=== PATIENT | female | born 1955 | race Caucasian/White ===

== ENCOUNTER 2018-02-21 22:33 | Inpatient (IN) | payer OTHER ==
[~2018-02-21] VITALS: Ht 175.3 cm; Wt 80.4 kg
[2018-02-22] VITALS (9 sets, daily range): BP systolic 124–184; BP diastolic 70–94; PULSE 76–90; RESP 15–27; TEMP 97.9–99.1; O2SAT 95–100
[2018-02-22] MEDS ORDERED: MAGNESIUM SULFATE INJ 4 GM in SODIUM CHLORIDE 0.9% INJ 92 ML IV PRN (03:15)
[2018-02-22] MEDS ORDERED: MAGNESIUM OXIDE 400 MG TAB PO PRN (03:15)
[2018-02-22] MEDS ORDERED: BISACODYL 10 MG SUPP RECTAL PRN (03:15)
[2018-02-22] MEDS ORDERED: MAGNESIUM SULFATE INJ 2 GM in SODIUM CHLORIDE 0.9% INJ 96 ML IV PRN (03:15)
[2018-02-22] MEDS ORDERED: Vancomycin Consult Pharmacy 1 EA OTHER SCH (03:15)
[2018-02-22] MEDS ORDERED: POTASSIUM PHOSPHATE INJ 30 MMOL in SODIUM CHLOR 0.9% 250 ML INJ 250 ML IV PRN (03:15)
[2018-02-22] MEDS ORDERED: POTASSIUM PHOSPHATE MONOBASIC 500 MG TAB PO/TUBE PRN (03:15)
[2018-02-22] MEDS ORDERED: SODIUM PHOSPHATE INJ 30 MMOL in SODIUM CHLOR 0.9% 250 ML INJ 240 ML IV PRN (03:15)
[2018-02-22] MEDS ORDERED: NURSING INFORMATION XX SCH (03:15)
[2018-02-22] MEDS ORDERED: LACTULOSE SYRUP 20 GM/30 ML CUP PO PRN (03:15)
[2018-02-22] MEDS ORDERED: MAGNESIUM HYDROXIDE SUSP 30 ML CUP PO PRN (03:15)
[2018-02-22] MEDS ORDERED: POTASSIUM PHOSPHATE MONOBASIC 500 MG TAB PO PRN (03:15)
[2018-02-22] MEDS ORDERED: POTASSIUM CHLOR 20 MEQ PREMIX 100 ML IV PRN ×2 (03:15)
[2018-02-22] MEDS ORDERED: DEXTROSE 50% IN WATER 50 ML VIAL(D50) IV PUSH PRN (03:15)
[2018-02-22] MEDS ORDERED: RESP: ALBUTEROL 2.5 MG/IPRATROPIUM 0.5 MG NEB (PRN) INH (03:15)
[2018-02-22] MEDS ORDERED: SENNOSIDES 8.6 MG TAB PO PRN (03:15)
[2018-02-22] MEDS ORDERED: ACETAMINOPHEN 325 MG TAB PO PRN (03:15)
[2018-02-22] MEDS ORDERED: POTASSIUM CHLOR 40 MEQ PREMIX 100 ML IV PRN ×2 (03:15)
[2018-02-22] MEDS ORDERED: CHLORHEXIDINE GLUCONATE 2 % 1 PACK (2 CLOTHS) TOP PRN (03:15)
[2018-02-22] MEDS ORDERED: POTASSIUM CHLORIDE 25 MEQ EFFERVESCENT TAB PO PRN (03:15)
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
[2018-02-22] MEDS: HYDROmorphone HCL PF 0.5 MG/0.5 ML SYRINGE IV PUSH PRN (03:40)
[2018-02-22] MEDS: BACITRACIN TOP OINT 15 GM TUBE TOPICAL SCH ×3 (03:45→21:30)
[2018-02-22] MEDS: CHLORHEXIDINE GLUCONATE 2 % 1 PACK (2 CLOTHS) TOP SCH (04:05)
[2018-02-22 04:27] LABS: AUTOMATED NEUTROPHIL # 3.4 TH/MM3 (1.8-7.7); BASOPHIL % 0.7 % (0.0-2.0); EOSINOPHIL # 0.3 TH/MM3 (0-0.4); EOSINOPHIL % 4.5 % (0.0-4.0); HEMATOCRIT 33.3 % (35.0-46.0); HEMOGLOBIN 11.3 GM/DL (11.6-15.3); LYMPH % 26.6 % (9.0-44.0); LYMPHOCYTE # 1.5 TH/MM3 (1.0-4.8); MEAN CORPUSCULAR HEMOGLOBIN 29.6 PG (27.0-34.0); MEAN CORPUSCULAR HGB CONC 34.1 % (32.0-36.0); MONO % 8.3 % (0.0-8.0); MONOCYTE # 0.5 TH/MM3 (0-0.9); NEUT % 59.9 % (16.0-70.0); PLATELET COUNT 406 TH/MM3 (150-450); RED BLOOD COUNT 3.82 MIL/MM3 (4.00-5.30); RED CELL DISTRIBUTION WIDTH 13.2 % (11.6-17.2); WHITE BLOOD COUNT 5.7 TH/MM3 (4.0-11.0)
[2018-02-22 04:51] LABS: BICARBONATE 24.6 MEQ/L (21.0-32.0); CALCIUM 8.9 MG/DL (8.5-10.1); CREATININE 1.03 MG/DL (0.50-1.00)
[2018-02-22] MEDS: AZTREONAM INJ 1,000 MG in SODIUM CHLORIDE 0.9% INJ 100 ML IV SCH ×3 (05:51→22:16)
[2018-02-22] MEDS: HEPARIN SODIUM - SQ 10,000 UNITS/ML VIAL SQ SCH ×3 (05:51→21:30)
[2018-02-22] MEDS: DEXTROSE 5%-LACTATED RING INJ 1,000 ML IV SCH ×3 (05:51→21:08)
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
[2018-02-22] MEDS ORDERED: INSULIN NovoLIN REGULAR SUPPLEMENTAL SCALE SQ SCH (08:00)
[2018-02-22] MEDS: FAMOTIDINE 20 MG TAB PO SCH ×2 (08:38→21:30)
[2018-02-22] MEDS: DOCUSATE SODIUM 50 MG/SENNA 8.6 MG TAB PO SCH ×2 (08:38→21:30)
[2018-02-22] MEDS ORDERED: RIFA300C2 PO (08:44)
[2018-02-22] MEDS ORDERED: SULF1TAB23 PO (08:44)
--- NOTE | 2018-02-22 09:35 | RADRPT ---
EXAM DATE: 02/22/2018 9:28 AM EDT AGE/SEX: 62 years / Female INDICATIONS: Pain for 6 days, no known trauma. CLINICAL DATA: This is the patient's initial encounter. Patient reports that signs and symptoms have been present for 4 - 6 days and indicates a pain score of 0/10. MEDICAL/SURGICAL HISTORY: None. None. [place] [facility] [place]/22/2018. . FINDINGS: 3 views of the right ankle demonstrate fracture dislocation at the Lisfranc joint. This finding is on ly partially imaged on this examination of the ankle. Talus and calcaneus appear intact. Ankle mortis e is intact. Distal tibia and fibula demonstrate no fracture. No soft tissue abnormality or radiopaqu e foreign body is seen. There is overlying cast material in place. CONCLUSION: There is a partially visualized fracture/dislocation in the region of the Lisfranc joint. Suggest ded icated foot x-rays and/or CT for further evaluation. Electronically signed by: Devonte Rivera MD 02/22/2018 9:33 AM EDT
--- NOTE | 2018-02-22 09:39 | PD.CONS ---
History of Present Illness Service Podiatry Consult Requested By Reason for Consult Right foot pain Primary Care Physician No Primary Care Physician Diagnoses: History of Present Illness This is a 62-year-old female with an unremarkable past medical history, but who has not seen a physician in 20 years, presents with right lower extremity pain and swelling. This started on Friday 02/16 when she noticed her right foot was swollen and painful. Past Family Social History Allergies: Uncoded Allergies: PCN (Allergy, Intermediate, 02/22/18) Past Medical History No prior past medical history, however has not been evaluated by physician in 20 years Past Surgical History delivery Active Ordered Medications Current Medications Medications (Trade) Dose Ordered Sig/Los Route Start Time Stop Time Status Last Admin (Baciguent Oint) 1 applic Q12HR TOPICAL 02/22/18 03:15 02/22/18 08:39 Potassium Chloride 100 ml @ 50 mls/hr Q2H PRN IV 02/22/18 03:15 Potassium Chloride 100 ml @ 50 mls/hr Q2H PRN IV 02/22/18 03:15 (K-Lyte Cl Eff) 50 meq UNSCH PRN PO 02/22/18 03:15 Potassium Chloride 100 ml @ 25 mls/hr UNSCH PRN IV 02/22/18 03:15 Potassium Chloride 100 ml @ 50 mls/hr Q2H PRN IV 02/22/18 03:15 Magnesium Sulfate 4 gm/Sodium Chloride 100 ml @ 50 mls/hr UNSCH PRN IV 02/22/18 03:15 (Mag-Ox) 800 mg UNSCH PRN PO 02/22/18 03:15 Magnesium Sulfate 2 gm/Sodium Chloride 100 ml @ 50 mls/hr UNSCH PRN IV 02/22/18 03:15 (K-Phos) 2,000 mg Q4H PRN PO 02/22/18 03:15 Sodium Phosphate 30 mmol/Sodium Chloride 250 ml @ 42 mls/hr UNSCH PRN IV 02/22/18 03:15 (K-Phos) 2,000 mg UNSCH PRN PO/TUBE 02/22/18 03:15 Potassium Phosphate 30 mmol/ Sodium Chloride 260 ml @ 42 mls/hr UNSCH PRN IV 02/22/18 03:15 (D50w (Vial) Inj) 25 ml UNSCH PRN IV PUSH 02/22/18 03:15 (Tylenol) 650 mg Q6H PRN PO 02/22/18 03:15 (Dilaudid Pf Inj) 0.5 mg Q4H PRN IV PUSH 02/22/18 03:15 02/22/18 03:40 (Pepcid) 20 mg Q12HR PO 02/22/18 09:00 02/22/18 08:38 (Duoneb Neb) 1 ampule Q2HR NEB PRN INH 02/22/18 03:15 (Heparin Inj) 5,000 units Q8H SQ 02/22/18 05:00 02/22/18 05:51 ([facility] [place]) 1 Q361D XX 02/22/18 03:15 02/22/18 03:15 (Chlorhexidine 2% Cloth) 3 pack Taper DAILY@04 TOP 02/22/18 04:00 02/18/19 03:59 (Chlorhexidine 2% Cloth) 3 pack UNSCH PRN TOP 02/22/18 03:15 (Cheyenne-Colace) 1 tab BID PO 02/22/18 09:00 02/22/18 08:38 (Milk Of Magnesia Liq) 30 ml Q12H PRN PO 02/22/18 03:15 (Senokot) 17.2 mg Q12H PRN PO 02/22/18 03:15 (Dulcolax Supp) 10 mg DAILY PRN RECTAL 02/22/18 03:15 (Lactulose Liq) 30 ml DAILY PRN PO 02/22/18 03:15 Pharmacy Profile Note 0 ml @ 0 mls/hr UNSCH OTHER 02/22/18 03:15 Aztreonam 1000 mg/ Sodium Chloride 100 ml @ 200 mls/hr Q8H IV 02/22/18 06:00 02/22/18 13:51 ([facility] [place]) PLEASE UPDATE PREMA... Q3H .XX 02/22/18 06:00 02/22/18 09:00 Dextrose/Lactated Ringer's 1,000 ml @ 84 mls/hr [id number] IV 02/22/18 05:30 02/22/18 05:51 (Pneumovax-23 Inj) 25 mcg ONCE ONCE IM 02/23/18 10:00 02/23/18 10:01 Vancomycin HCl 1500 mg/Sodium Chloride 515 ml @ 257.5 mls/ hr Q24H IV 02/23/18 12:00 ([facility] [place] [facility] Ordered Lab Info) SPECIFIC LAB TO BE ... ONCE ONCE .XX 02/25/18 11:45 02/25/18 11:46 (NovoLIN R SUPPLEMENTAL SCALE) 1 Q6HR SQ 02/22/18 18:00 Family History Diabetes, dad Social History Former smoker but quit many years ago. Does endorse drinking socially "Shadia every now and then ", denies other drugs. Physical Exam Vital Signs Vital Signs Date Time Temp Pulse Resp B/P (MAP) Pulse Ox O2 Delivery O2 Flow Rate FiO2 02/22/18 08:00 90 02/22/18 07:00 Room Air 02/22/18 07:00 90 02/22/18 06:00 78 02/22/18 04:00 76 02/22/18 04:00 99.1 76 27 141/70 (93) 100 02/22/18 02:45 99.0 88 19 184/94 (124) 100 02/22/18 02:45 88 Physical Exam Right foot with obvious deformity to midfoot with abduction of forefoot. Dorsal blistering noted to forefoot with mild serous drainage. Pain to midfoot area. Palpable pedal pulses. Capillary refill intact to digits. Laboratory Laboratory Tests Test 02/22/18 04:03 White Blood Count 5.7 Red Blood Count 3.82 Hemoglobin 11.3 Hematocrit 33.3 Mean Corpuscular Volume 87.0 Mean Corpuscular Hemoglobin 29.6 Mean Corpuscular Hemoglobin Concent 34.1 Red Cell Distribution Width 13.2 Platelet Count 406 Mean Platelet Volume 9.0 Neutrophils (%) (Auto) 59.9 Lymphocytes (%) (Auto) 26.6 Monocytes (%) (Auto) 8.3 Eosinophils (%) (Auto) 4.5 Basophils (%) (Auto) 0.7 Neutrophils # (Auto) 3.4 Lymphocytes # (Auto) 1.5 Monocytes # (Auto) 0.5 Eosinophils # (Auto) 0.3 Basophils # (Auto) 0.0 CBC Comment DIFF FINAL Differential Comment Blood Urea Nitrogen 13 Creatinine 1.03 Random Glucose 212 Calcium Level 8.9 Sodium Level 139 Potassium Level 4.0 Chloride Level 105 Carbon Dioxide Level 24.6 Anion Gap 9 Estimat Glomerular Filtration Rate 55 Prealbumin 13 B-Hydroxybutyrate 0.26 Date/Time Source Procedure Growth Status 02/22/18 04:14 Blood Peripheral Aerobic Blood Culture Pending Received 02/22/18 04:14 Blood Peripheral Anaerobic Blood Culture Pending Received Result Diagram: 02/22/18 0403 02/22/18 0403 Imaging Last 72 hours Impressions Lower Extremity CT 02/22/18 1434 Signed Impressions: CONCLUSION: There is homolateral dislocation at all of the Lisfranc joints with lateral and posterior displacement of the proximal metatarsals. Multiple small ossific den sities adjacent to the Lisfranc joint may represent fracture fragments. There i s an impaction fracture on the proximal first metatarsal secondary to impaction from the middle cuneiform. Lower Extremity CT 02/22/18 0646 Signed Impressions: CONCLUSION: 1. There is fracture dislocation at the Lisfranc joint. Please refer to foot C T for further description as this finding is only partially imaged on this stud y. 2. There is subcutaneous edema along the medial and lateral aspect of the ankl e. No ankle fracture is identified. Foot X-Ray 02/22/18 0000 Signed Impressions: CONCLUSION: There is fracture dislocation at all of the Lisfranc joints with lateral and po sterior displacement of the proximal metatarsals. Ankle X-Ray 02/22/18 0000 Signed Impressions: CONCLUSION: There is a partially visualized fracture/dislocation in the region of the Lisfr anc joint. Suggest dedicated foot x-rays and/or CT for further evaluation. Assessment and Plan Assessment and Plan Right foot lisfranc fracture/dislocation To OR this afternoon for ORIF vs exfix vs percutaneous pinning right foot fractures XR and CT pending NPO now Delmy Tam DPM February 22, 2018 09:39
--- NOTE | 2018-02-22 10:26 | RADRPT ---
EXAM DATE: 02/22/2018 9:14 AM EDT AGE/SEX: 62 years / Female INDICATIONS: Right ankle pain. Evaluate for fracture. CLINICAL DATA: This is the patient's initial encounter. Patient reports that signs and symptoms have been present for 1 day and indicates a pain score of 4/10. MEDICAL/SURGICAL HISTORY: None. None. RADIATION DOSE: 7.29 CTDI (mGy) COMPARISON: No prior [place] exams available for comparison. TECHNIQUE: Multiple contiguous axial images were acquired using a multirow detector CT scanner witho ut contrast. Multiplanar reconstruction was performed in the sagittal and coronal planes. Using aut omated exposure control and adjustment of the mA and/or kV according to patient size, radiation dose was kept as low as reasonably achievable to obtain optimal diagnostic quality images. FINDINGS: Bones: There is a fracture dislocation at the Lisfranc joint which is only partially visualized on t his examination. It appears to involve at least the second and third proximal metatarsals. The distal tibia, distal fibula, talus, calcaneus, cuboid, and navicular bone are intact without fracture. Joints: Ankle mortise is intact. No degenerative changes present. Subtalar joint is within normal li mits. There is dislocation at the Lisfranc joint. Soft Tissues: There is subcutaneous edema along the medial and lateral aspect of the ankle joint and within the midfoot. No dislocated tendons are identified. Distal Achilles tendon is normal in thickn ess. Other: No foreign bodies seen. CONCLUSION: 1. There is fracture dislocation at the Lisfranc joint. Please refer to foot CT for further descript ion as this finding is only partially imaged on this study. 2. There is subcutaneous edema along the medial and lateral aspect of the ankle. No ankle fracture i s identified. Electronically signed by: Devonte Rivera MD 02/22/2018 10:24 AM EDT
--- NOTE | 2018-02-22 10:43 | RADRPT ---
EXAM DATE: 02/22/2018 10:36 AM EDT AGE/SEX: 62 years / Female INDICATIONS: Evaluate right foot fracture. Patient states they cleaned a wound this morning. Patient had pain, not today. CLINICAL DATA: This is the patient's subsequent encounter. Patient reports that signs and symptoms h ave been present for 1 week and indicates a pain score of 0/10. MEDICAL/SURGICAL HISTORY: None. None. COMPARISON: No prior [place] exams available for comparison. FINDINGS: 3 views of the right foot obtained with overlying casting material in place demonstrate a fracture di slocation at the Lisfranc joint that appears to involve all tarsometatarsal joints. The proximal meta tarsals are laterally and posteriorly displaced. The medial cuneiform appears slightly medially displ aced. No definite fracture is seen in the hindfoot. There is soft tissue swelling on the dorsal aspec t of the foot. No radiopaque foreign body is identified. CONCLUSION: There is fracture dislocation at all of the Lisfranc joints with lateral and posterior displacement o f the proximal metatarsals. Electronically signed by: Devonte Rivera MD 02/22/2018 10:42 AM EDT
[2018-02-22] MEDS ORDERED: DEXAMETHASONE SOD PHOS 4 MG/ML VIAL IV ONE (12:00)
[2018-02-22] MEDS ORDERED: PHENYLEPHRINE HCL 10 MG/ML VIAL IV ONE (12:00)
[2018-02-22] MEDS ORDERED: ONDANSETRON HCL 4 MG/2 ML VIAL IV PUSH ONE (12:00)
[2018-02-22] MEDS ORDERED: LIDOCAINE HCL 1% PF 5 ML SYRINGE OTHER ONE (12:00)
[2018-02-22] MEDS ORDERED: LACTATED RINGER'S 1000 ML INJ 1,000 ML IV ONE (12:00)
[2018-02-22] MEDS ORDERED: PHENYLEPH/NS 1000 MCG/10 ML SYR IV ONE (12:00)
[2018-02-22] MEDS ORDERED: PROPOFOL 200 MG/20 ML AMP IV ONE (12:00)
[2018-02-22] MEDS ORDERED: ePHEDrine/NS 25 MG/5 ML SYRINGE IV ONE (12:00)
[2018-02-22] MEDS ORDERED: VANCOMYCIN 1,500 MG/NS 500 ML IV ONE ×2 (12:00)
[2018-02-22] MEDS ORDERED: GENTAMICIN SULFATE 80 MG/2 ML VIAL ONE (13:50)
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
--- NOTE | 2018-02-22 15:52 | RADRPT ---
EXAM DATE: 02/22/2018 3:26 PM EDT AGE/SEX: 62 years / Female INDICATIONS: Pain for 6 days, no known trauma. CLINICAL DATA: This is the patient's initial encounter. Patient reports that signs and symptoms have been present for 4 - 6 days and indicates a pain score of 0/10. MEDICAL/SURGICAL HISTORY: Diabetes. None. RADIATION DOSE: 27.69 CTDI (mGy) COMPARISON: No prior [facility] exams available for comparison. TECHNIQUE: Multiple contiguous axial images were acquired using a multirow detector CT scanner witho ut contrast. Multiplanar reconstruction was performed in the sagittal and coronal planes. Using auto mated exposure control and adjustment of the mA and/or kV according to patient size, radiation dose w as kept as low as reasonably achievable to obtain optimal diagnostic quality images. FINDINGS: Bones: There are small ossific densities adjacent to the dislocated metatarsals at the Lisfranc join ts. The middle cuneiform demonstrates impaction on the proximal first metatarsal. Bones of the hindfo ot are intact. Digits also appear intact. Joints: There is dislocation at all of the Lisfranc joints involving the first through fifth digits. These are dislocated laterally and posteriorly. Soft Tissues: There is diffuse subcutaneous edema throughout the foot. Other: No foreign bodies seen. CONCLUSION: There is homolateral dislocation at all of the Lisfranc joints with lateral and posterior displacemen t of the proximal metatarsals. Multiple small ossific densities adjacent to the Lisfranc joint may re present fracture fragments. There is an impaction fracture on the proximal first metatarsal secondary to impaction from the middle cuneiform. Electronically signed by: Devonte Rivera MD 02/22/2018 3:50 PM EDT
[2018-02-22] MEDS ORDERED: BUPIVACAINE HCL PF 0.75% 10 ML VIAL ONE (17:46)
[2018-02-22] MEDS ORDERED: LIDOCAINE HCL 2% 50 ML VIAL ONE (17:49)
[2018-02-22] MEDS: INSULIN NovoLIN REGULAR SUPPLEMENTAL SCALE SQ SCH (18:00)
[2018-02-22] MEDS ORDERED: KETAMINE HCL 50 MG/5 ML SYRINGE ONE (18:38)
[2018-02-22] MEDS ORDERED: MIDAZOLAM HCL 2 MG/2 ML VIAL ONE (18:59)
[2018-02-22 19:55] LABS: HEMOGLOBIN A1C 11.1 % (4.3-6.0)
--- NOTE | 2018-02-22 20:49 | RADRPT ---
EXAM DATE: 02/22/2018 8:32 PM EDT AGE/SEX: 62 years / Female INDICATIONS: External fixator of the right foot. CLINICAL DATA: This is the patient's subsequent encounter. Patient reports that signs and symptoms h ave been present for 2 days and indicates a pain score of Nonresponsive. MEDICAL/SURGICAL HISTORY: Diabetes mellitus type II. None. COMPARISON: No prior [facility] exams available for comparison. FINDINGS: Patient is status post internal fixation of the foot with multiple pins.. There appears to be good po sition alignment of the bony structures. CONCLUSION: Good position and alignment on this postoperative study. Electronically signed by: Angel Durham MD 02/22/2018 8:48 PM EDT
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
[2018-02-22] MEDS ORDERED: DO NOT ADM ANY ANTICOAGULANT DRUGS PRN (21:00)
--- NOTE | 2018-02-22 21:24 | RADRPT ---
EXAM DATE: 02/22/2018 9:20 PM EDT AGE/SEX: 62 years / Female INDICATIONS: Post-op external fixator placement of the right foot. CLINICAL DATA: This is the patient's subsequent encounter. Patient reports that signs and symptoms h ave been present for 2 days and indicates a pain score of 0/10. MEDICAL/SURGICAL HISTORY: Diabetes mellitus type II. . External fixator placement. COMPARISON: [facility] [place], FOOT RIGHT COMPLETE ([id number]), 02/22/2018. . FINDINGS: Patient is status post internal fixation of the right foot with multiple pins. There appears to be go od alignment and position of the bony structures and hardware on this postoperative study. CONCLUSION: Good alignment position on this postoperative study. Electronically signed by: Angel Durham MD 02/22/2018 9:23 PM EDT
[2018-02-22 23:06] LABS: BACTERIA, URINE OCC /hpf; BILIRUBIN, URINE NEG (NEG); BLOOD, URINE NEG (NEG); GLUCOSE,URINE 150 mg/dL (NEG); KETONE, URINE 10 mg/dL (NEG); MUCUS URINE FEW /lpf (OCC); NITRITE,URINE NEG (NEG); RENAL EPITHELIAL CELLS 2 /hpf; SQUAMOUS EPITHELIAL CELL URINE 14 /hpf (0-5); TRANSITIONAL EPI CELLS, URINE <1 /hpf; URINE COLOR LIGHT-YELLOW (YELLW/STRAW); URINE LEUKOCYTE ESTERASE LARGE (NEG)
[2018-02-23] VITALS: BP 115/56; PULSE 82; RESP 16; TEMP 98.1; O2SAT 98
[2018-02-23] MEDS: INSULIN NovoLIN REGULAR SUPPLEMENTAL SCALE SQ SCH ×4 (00:35→17:32)
[2018-02-23 04:00] VITALS: BP 131/71; PULSE 78; RESP 18; TEMP 98.2; O2SAT 100
[2018-02-23] MEDS: CHLORHEXIDINE GLUCONATE 2 % 1 PACK (2 CLOTHS) TOP SCH (04:16)
[2018-02-23] MEDS: HEPARIN SODIUM - SQ 10,000 UNITS/ML VIAL SQ SCH ×3 (04:51→20:46)
--- NOTE | 2018-02-23 05:12 | RADRPT ---
EXAM DATE: 02/23/2018 4:57 AM EDT AGE/SEX: 62 years / Female INDICATIONS: Post operative; Right foot. CLINICAL DATA: This is the patient's initial encounter. Patient reports that signs and symptoms have been present for 3 days and indicates a pain score of 4/10. MEDICAL/SURGICAL HISTORY: None. . Right foot RADIATION DOSE: 4.14 CTDI (mGy) COMPARISON: [facility], CT ANKLE RIGHT W/O CONTRAST, 02/22/2018. . TECHNIQUE: Multiple contiguous axial images were acquired using a multirow detector CT scanner witho ut contrast. Multiplanar reconstruction was performed in the sagittal and coronal planes. Using auto mated exposure control and adjustment of the mA and/or kV according to patient size, radiation dose w as kept as low as reasonably achievable to obtain optimal diagnostic quality images. FINDINGS: Surgical pins traverse the tarsometatarsal junctions and previously seen fractures and Lisfranc's dis location have been reduced with multiple bony fragments at the second and third tarsometatarsal joint s. Postsurgical soft tissue gas is identified and alignment appears anatomical. CONCLUSION: 1. Postsurgical changes and gross anatomical alignment. Electronically signed by: Raphael Escalante MD 02/23/2018 5:11 AM EDT
[2018-02-23 05:26] LABS: HEMATOCRIT 29.8 % (35.0-46.0); HEMOGLOBIN 10.2 GM/DL (11.6-15.3); MEAN CELL VOLUME 86.7 FL (80.0-100.0); MEAN CORPUSCULAR HEMOGLOBIN 29.6 PG (27.0-34.0); MEAN CORPUSCULAR HGB CONC 34.1 % (32.0-36.0); MEAN PLATELET VOLUME 8.1 FL (7.0-11.0); PLATELET COUNT 296 TH/MM3 (150-450); RED BLOOD COUNT 3.44 MIL/MM3 (4.00-5.30); WHITE BLOOD COUNT 4.8 TH/MM3 (4.0-11.0)
[2018-02-23] MEDS: HYDROmorphone HCL PF 0.5 MG/0.5 ML SYRINGE IV PUSH PRN ×3 (05:28→20:46)
[2018-02-23] MEDS: AZTREONAM INJ 1,000 MG in SODIUM CHLORIDE 0.9% INJ 100 ML IV SCH ×3 (05:28→22:00)
[2018-02-23 05:50] LABS: BICARBONATE 27.9 MEQ/L (21.0-32.0); CALCIUM 8.5 MG/DL (8.5-10.1); CREATININE 0.77 MG/DL (0.50-1.00)
[2018-02-23 08:00] VITALS: BP 128/74; PULSE 84; RESP 23; TEMP 98.2; O2SAT 98
[2018-02-23] MEDS: FAMOTIDINE 20 MG TAB PO SCH ×2 (08:18→20:47)
[2018-02-23] MEDS: DOCUSATE SODIUM 50 MG/SENNA 8.6 MG TAB PO SCH ×2 (08:18→20:47)
[2018-02-23] MEDS: BACITRACIN TOP OINT 15 GM TUBE TOPICAL SCH ×2 (08:21→20:47)
[2018-02-23] MEDS: DEXTROSE 5%-LACTATED RING INJ 1,000 ML IV SCH (09:50)
[2018-02-23] MEDS ORDERED: PNEUMOCOCCAL POLYVALENT INJ 25 MCG/0.5 ML SYR IM ONE (10:00)
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
[2018-02-23 12:00] VITALS: BP 98/64; PULSE 92; RESP 29; TEMP 98; O2SAT 95
[2018-02-23] MEDS ORDERED: VANCOMYCIN 1,500 MG/NS 500 ML IV SCH ×2 (12:00)
--- NOTE | 2018-02-23 13:47 | PD.POD ---
Subjective Podiatric Problems Right lisfranc fracture/dislocation status post open reduction with pinning of lisfranc fracture/dislocation right foot 02/22/18 Dr Tam Past Med/Surg/Social History Social History Smoking Status: Never Smoker Objective Vital Signs Vital Signs Date Time Temp Pulse Resp B/P (MAP) Pulse Ox O2 Delivery O2 Flow Rate FiO2 02/23/18 08:00 98.2 84 23 128/74 (92) 98 02/23/18 08:00 84 02/23/18 07:00 Nasal Cannula 3.00 02/23/18 07:00 Nasal Cannula 3.00 02/23/18 04:00 98.2 78 18 131/71 (91) 100 02/23/18 04:00 78 02/23/18 00:00 82 02/23/18 00:00 98.1 82 16 115/56 (75) 98 02/22/18 21:15 98.3 87 24 126/63 (84) 95 Nasal Cannula 2 02/22/18 21:00 89 24 141/64 (89) 95 Nasal Cannula 2 02/22/18 20:45 96 22 141/85 (103) 93 Nasal Cannula 3 02/22/18 20:34 97.9 97 18 110/56 (74) 94 Nasal Cannula 3 02/22/18 16:00 88 02/22/18 16:00 98.2 88 16 134/80 (98) 97 02/22/18 16:00 87 02/22/18 14:00 82 Uncoded Allergies: PCN (Allergy, Intermediate, 02/22/18) Objective Remarks Last 72 hours Impressions Lower Extremity CT 02/23/18 0000 Signed Impressions: CONCLUSION: 1. Postsurgical changes and gross anatomical alignment. Lower Extremity CT 02/22/18 1434 Signed Impressions: CONCLUSION: There is homolateral dislocation at all of the Lisfranc joints with lateral and posterior displacement of the proximal metatarsals. Multiple small ossific den sities adjacent to the Lisfranc joint may represent fracture fragments. There i s an impaction fracture on the proximal first metatarsal secondary to impaction from the middle cuneiform. Lower Extremity CT 02/22/18 0646 Signed Impressions: CONCLUSION: 1. There is fracture dislocation at the Lisfranc joint. Please refer to foot C T for further description as this finding is only partially imaged on this stud y. 2. There is subcutaneous edema along the medial and lateral aspect of the ankl e. No ankle fracture is identified. Foot X-Ray 02/22/18 0000 Signed Impressions: CONCLUSION: Good alignment position on this postoperative study. Foot X-Ray 02/22/18 0000 Signed Impressions: CONCLUSION: Good position and alignment on this postoperative study. Foot X-Ray 02/22/18 0000 Signed Impressions: CONCLUSION: There is fracture dislocation at all of the Lisfranc joints with lateral and po sterior displacement of the proximal metatarsals. Ankle X-Ray 02/22/18 0000 Signed Impressions: CONCLUSION: There is a partially visualized fracture/dislocation in the region of the Lisfr anc joint. Suggest dedicated foot x-rays and/or CT for further evaluation. Exam-Podiatry Remarks Right foot splint intact.. Dressing clean, dry, intact. Neurovascularly intact. Compartments soft Assessment & Plan A/P Right lisfranc fracture/dislocation status post open reduction with pinning of lisfranc fracture/dislocation right foot 02/22/18 Dr Tam Checking on insurance, and will either plan to move forward with primary fusion of 1st and 2nd columns during this admission or as outpatient if insurance can be verified. Continue nonweightbearing left Lovenox 40mg subq daily needed upon discharge Pain control Will change bandage and assess foot Delmy Tam DPM February 23, 2018 13:47
--- NOTE | 2018-02-23 14:28 | EKG ---
Date Performed: 02/22/2018 Time Performed: 11:37:20 PTAGE: 62 years EKG: Possible ectopic atrial rhythm. Poor R wave progression - probable normal variant Inferior T wave changes are nonspecific Borderline ECG NO PREVIOUS TRACING DOCTOR: Gomez Palacios Interpretating Date/Time 02/23/2018 14:27:19
[2018-02-23 16:00] VITALS: BP 102/61; PULSE 96; RESP 21; TEMP 98.1; O2SAT 96
[2018-02-23 20:00] VITALS: BP 145/68; PULSE 88; RESP 24; TEMP 98.8; O2SAT 94
[2018-02-24] VITALS (7 sets, daily range): BP systolic 95–149; BP diastolic 60–88; PULSE 78–94; RESP 12–28; TEMP 97.7–99; O2SAT 94–98
[2018-02-24] MEDS: HYDROmorphone HCL PF 0.5 MG/0.5 ML SYRINGE IV PUSH PRN ×2 (03:30→09:58)
[2018-02-24] MEDS: CHLORHEXIDINE GLUCONATE 2 % 1 PACK (2 CLOTHS) TOP SCH (04:00)
[2018-02-24 04:11] LABS: HEMATOCRIT 29.4 % (35.0-46.0); HEMOGLOBIN 10.1 GM/DL (11.6-15.3); MEAN CELL VOLUME 86.6 FL (80.0-100.0); MEAN CORPUSCULAR HEMOGLOBIN 29.6 PG (27.0-34.0); MEAN CORPUSCULAR HGB CONC 34.2 % (32.0-36.0); MEAN PLATELET VOLUME 7.6 FL (7.0-11.0); PLATELET COUNT 286 TH/MM3 (150-450); RED CELL DISTRIBUTION WIDTH 13.2 % (11.6-17.2); WHITE BLOOD COUNT 7.8 TH/MM3 (4.0-11.0)
[2018-02-24 04:36] LABS: BICARBONATE 25.8 MEQ/L (21.0-32.0); CALCIUM 8.4 MG/DL (8.5-10.1); CREATININE 0.76 MG/DL (0.50-1.00)
[2018-02-24] MEDS: AZTREONAM INJ 1,000 MG in SODIUM CHLORIDE 0.9% INJ 100 ML IV SCH ×3 (05:29→22:41)
[2018-02-24] MEDS: HEPARIN SODIUM - SQ 10,000 UNITS/ML VIAL SQ SCH ×3 (05:29→20:13)
[2018-02-24] MEDS: INSULIN NovoLIN REGULAR SUPPLEMENTAL SCALE SQ SCH ×4 (06:00→17:04)
[2018-02-24] MEDS: DOCUSATE SODIUM 50 MG/SENNA 8.6 MG TAB PO SCH ×2 (08:18→20:13)
[2018-02-24] MEDS: BACITRACIN TOP OINT 15 GM TUBE TOPICAL SCH ×2 (08:18→20:15)
[2018-02-24] MEDS: FAMOTIDINE 20 MG TAB PO SCH ×2 (08:18→20:13)
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
[2018-02-24] MEDS ORDERED: POTASSIUM CHLORIDE 10 MEQ CONTROLLED RELEASE TAB PO ONE (08:45)
[2018-02-24] MEDS ORDERED: ACETAMINOPHEN/HYDROcodone 325 MG/5 MG TAB PO PRN (11:30)
[2018-02-24] MEDS ORDERED: PHARMACY ORDERED LAB ONE ×2 (11:45→18:00)
[2018-02-24] MEDS: VANCOMYCIN 1,000 MG/NS 250 ML IV SCH ×2 (16:33)
--- NOTE | 2018-02-24 19:11 | PD.POD ---
Subjective Podiatric Problems Right lisfranc fracture/dislocation status post open reduction with pinning of lisfranc fracture/dislocation right foot 02/22/18 Dr Tam Past Med/Surg/Social History Social History Smoking Status: Never Smoker Objective Vital Signs Vital Signs Date Time Temp Pulse Resp B/P (MAP) Pulse Ox O2 Delivery O2 Flow Rate FiO2 02/24/18 17:36 98.4 90 18 138/60 (86) 97 02/24/18 16:00 98.2 92 28 149/78 (101) 98 02/24/18 16:00 92 02/24/18 12:00 98.1 78 20 95/63 (74) 97 02/24/18 12:00 78 02/24/18 09:27 21 02/24/18 08:00 97.7 86 18 137/67 (90) 96 02/24/18 08:00 86 02/24/18 07:00 96 Room Air 02/24/18 04:00 99.0 88 23 129/88 (102) 94 02/24/18 04:00 84 02/24/18 00:00 80 02/24/18 00:00 98.4 80 12 132/67 (88) 94 02/23/18 20:00 88 02/23/18 20:00 Room Air 98 02/23/18 20:00 98.8 88 24 145/68 (93) 94 Uncoded Allergies: PCN (Allergy, Intermediate, 02/22/18) Objective Remarks Last 72 hours Impressions Lower Extremity CT 02/23/18 0000 Signed Impressions: CONCLUSION: 1. Postsurgical changes and gross anatomical alignment. Lower Extremity CT 02/22/18 1434 Signed Impressions: CONCLUSION: There is homolateral dislocation at all of the Lisfranc joints with lateral and posterior displacement of the proximal metatarsals. Multiple small ossific den sities adjacent to the Lisfranc joint may represent fracture fragments. There i s an impaction fracture on the proximal first metatarsal secondary to impaction from the middle cuneiform. Lower Extremity CT 02/22/18 0646 Signed Impressions: CONCLUSION: 1. There is fracture dislocation at the Lisfranc joint. Please refer to foot C T for further description as this finding is only partially imaged on this stud y. 2. There is subcutaneous edema along the medial and lateral aspect of the ankl e. No ankle fracture is identified. Foot X-Ray 02/22/18 0000 Signed Impressions: CONCLUSION: Good alignment position on this postoperative study. Foot X-Ray 02/22/18 0000 Signed Impressions: CONCLUSION: Good position and alignment on this postoperative study. Foot X-Ray 02/22/18 0000 Signed Impressions: CONCLUSION: There is fracture dislocation at all of the Lisfranc joints with lateral and po sterior displacement of the proximal metatarsals. Ankle X-Ray 02/22/18 0000 Signed Impressions: CONCLUSION: There is a partially visualized fracture/dislocation in the region of the Lisfr anc joint. Suggest dedicated foot x-rays and/or CT for further evaluation. Physical Exam Remarks Right foot with splint/dressing intact. Dorsal foot stable appearance. Sutures intact. Neurovascularly intact. Assessment & Plan A/P Right lisfranc fracture/dislocation status post open reduction with pinning of lisfranc fracture/dislocation right foot 02/22/18 Dr Tam Checked insurance, and ok with patient discharge home tomorrow morning and follow up in clinic in 1 week for dressing change and wound assessment Dressing changed today. Keep clean, dry, intact. Continue nonweightbearing left Lovenox 40mg subq daily needed upon discharge Pain control Delmy Tam DPM February 24, 2018 19:11
[2018-02-24] MEDS: ACETAMINOPHEN/HYDROcodone 325 MG/10 MG TAB PO PRN (20:13)
[2018-02-25] VITALS: BP 150/67; PULSE 92; RESP 18; TEMP 98.1; O2SAT 95
[2018-02-25] MEDS: CHLORHEXIDINE GLUCONATE 2 % 1 PACK (2 CLOTHS) TOP SCH (04:00)
[2018-02-25] MEDS: HEPARIN SODIUM - SQ 10,000 UNITS/ML VIAL SQ SCH ×2 (05:42→12:38)
[2018-02-25] MEDS: VANCOMYCIN 1,000 MG/NS 250 ML IV SCH ×4 (05:43→16:32)
[2018-02-25 05:51] LABS: HEMATOCRIT 28.9 % (35.0-46.0); HEMOGLOBIN 9.9 GM/DL (11.6-15.3); MEAN CELL VOLUME 86.5 FL (80.0-100.0); MEAN CORPUSCULAR HEMOGLOBIN 29.7 PG (27.0-34.0); MEAN CORPUSCULAR HGB CONC 34.4 % (32.0-36.0); MEAN PLATELET VOLUME 7.7 FL (7.0-11.0); PLATELET COUNT 284 TH/MM3 (150-450); RED BLOOD COUNT 3.34 MIL/MM3 (4.00-5.30); RED CELL DISTRIBUTION WIDTH 13.1 % (11.6-17.2); WHITE BLOOD COUNT 5.6 TH/MM3 (4.0-11.0)
[2018-02-25 06:11] LABS: BICARBONATE 25.6 MEQ/L (21.0-32.0); CREATININE 0.75 MG/DL (0.50-1.00)
[2018-02-25 08:00] VITALS: BP 139/75; PULSE 80; RESP 18; TEMP 98.7; O2SAT 96
[2018-02-25] MEDS: FAMOTIDINE 20 MG TAB PO SCH (08:11)
[2018-02-25] MEDS: DOCUSATE SODIUM 50 MG/SENNA 8.6 MG TAB PO SCH (08:11)
[2018-02-25] MEDS: BACITRACIN TOP OINT 15 GM TUBE TOPICAL SCH (08:15)
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
[2018-02-25] MEDS ORDERED: PHARMACY ORDERED LAB ONE (11:45)
[2018-02-25 12:00] VITALS: BP 156/77; PULSE 79; RESP 16; TEMP 98.5; O2SAT 97
[2018-02-25] MEDS: INSULIN NovoLIN REGULAR SUPPLEMENTAL SCALE SQ SCH ×2 (12:00)
[2018-02-25] MEDS: ACETAMINOPHEN/HYDROcodone 325 MG/10 MG TAB PO PRN (12:42)
[2018-02-25] MEDS: AZTREONAM INJ 1,000 MG in SODIUM CHLORIDE 0.9% INJ 100 ML IV SCH (12:43)
[2018-02-25] MEDS ORDERED: QC B500O TOPICAL (15:12)
[2018-02-25] MEDS ORDERED: LACTCHW3 CHEW (15:12)
[2018-02-25] MEDS ORDERED: HYDR-3583 PO (15:12)
[2018-02-25] MEDS ORDERED: PERI PO (15:12)
[2018-02-25] MEDS ORDERED: ENOX40P SQ (15:13)
--- NOTE | 2018-02-25 15:14 | HHI.FF ---
Face to Face Verification Diagnosis: (1) Uncontrolled diabetes mellitus (2) Foot fracture, right Physical Therapy Order: Evaluate and Treat Home Health Nursing Order: Medical education Medication education-adverse effect Wound care and dressing changes (keep wound dry intact change dressing if need to keep dry intact ) I have seen patient Audrey Brown on 02/25/18. My clinical findings support the need for the requested home health care services because: Ltd mobility - disease progression I certify that my clinical findings support that this patient is homebound because: Post-op weakness Ingrid Haque MD Feb 25, 2018 15:14
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
[2018-02-25] MEDS ORDERED: SIMV20TA PO (15:22)
[2018-02-25] MEDS ORDERED: BIOM30MI (15:27)
[2018-02-25] MEDS ORDERED: LANCETS1 MI1 (15:27)
[2018-02-25] MEDS ORDERED: INSU1MIS15 (15:27)
[2018-02-25] MEDS ORDERED: GLUCKIT15 (15:27)
[2018-02-25] MEDS ORDERED: GLUCTES12 (15:27)
[2018-02-25] MEDS ORDERED: NOVOLOGMXP SQ (15:28)
[2018-02-25] MEDS ORDERED: WALKER WHEELS/F1 MIS (15:31)
[2018-02-25] MEDS ORDERED: WHEEMIS3 (15:31)
[2018-02-25 15:53] LABS: ALBUMIN 2.4 GM/DL (3.4-5.0); DIRECT BILIRUBIN ADULT 0.1 MG/DL (0.0-0.2)
[2018-02-25 15:56] LABS: CHOLESTEROL/ HDL RATIO 3.18 RATIO; HDL CHOLESTEROL 45.9 MG/DL (40.0-60.0); INDIRECT BILIRUBIN 0.1 MG/DL (0.0-0.8); TOTAL BILIRUBIN ADULT 0.2 MG/DL (0.2-1.0); TOTAL PROTEIN 6.8 GM/DL (6.4-8.2)
[2018-02-25] MEDS ORDERED: ENOXAPARIN SODIUM 40 MG/0.4 ML SYRINGE SQ SCH (16:00)
--- NOTE | 2018-02-25 16:30 | HHI.FF ---
Face to Face Verification Diagnosis: (1) Uncontrolled diabetes mellitus (2) Foot fracture, right Physical Therapy Order: Evaluate and Treat Home Health Nursing Order: Medical education Signs/symptoms of disease process Medication education-adverse effect Nursing assessment with vital signs Instructions: teaching SQ injection lovenox and insulin I have seen patient Audrey Brown on 02/25/18. My clinical findings support the need for the requested home health care services because: Ltd mobility - disease progression I certify that my clinical findings support that this patient is homebound because: Post-op weakness Ingrid Haque MD Feb 25, 2018 16:30
[2018-02-25] MEDS ORDERED: INSULIN ASPAR PROT 70/30 1,000 UNITS/10 ML VIAL SQ SCH (21:00)
[2018-02-26] MEDS ORDERED: PHARMACY ORDERED LAB ONE (04:45)
== END 2018-02-25 18:18 | disposition home health service (06) | DRG 504 ==
LOC: N03A 02-22 02:20 → N07A 02-24 17:31
PROVIDERS: ADMIT Hospitalist; ATTEND Hospitalist
PROC: 0QSN04Z Reposition Right Metatarsal with Internal Fixation Device, Open Approach (ICD-10-PCS; principal; 2018-02-22 17:37)
DX: S92.311A Displaced fracture of first metatarsal bone, right foot, initial encounter for closed fracture (principal); L03.115 Cellulitis of right lower limb; E11.65 Type 2 diabetes mellitus with hyperglycemia; T31.0 Burns involving less than 10% of body surface; T25.321A Burn of third degree of right foot, initial encounter; S92.321A Displaced fracture of second metatarsal bone, right foot, initial encounter for closed fracture; S92.331A Displaced fracture of third metatarsal bone, right foot, initial encounter for closed fracture; S92.341A Displaced fracture of fourth metatarsal bone, right foot, initial encounter for closed fracture; S92.351A Displaced fracture of fifth metatarsal bone, right foot, initial encounter for closed fracture
CPT/HCPCS: 73610; 73620; 73630; 73700; 76000; 80048; 80061; 80076; 80202; 81001; 82010; 82948; 83036; 84134; 85025; 85027; 86850; 86900; 86901; 87040; 87086; 87641; 90732; 93005; 94150; 94640; 94667; 94668; J1100; J1170; J1580; J1644; J1650; J2250; J2370; J2405; J3010; J3370; J3480; J7040; J7050; J7120; J7121